=== PATIENT | female | born 1985 | race Two or more races ===

== ENCOUNTER 2022-04-06 23:42 | Emergency (ER) | payer MEDICAID ==
[~2022-04-06] VITALS: Ht 160 cm; Wt 72.8 kg
[2022-04-07] MEDS ORDERED: ACETAMINOPHEN 325 MG TAB PO ONE (04:45)
[2022-04-07] MEDS ORDERED: cefTRIAXone SOD 1,000 MG VL IM ONE (07:00)
[2022-04-07] MEDS ORDERED: CLIN300C8 PO (07:08)
[2022-04-07] MEDS ORDERED: ACET-1080 PO (07:08)
[2022-04-07 07:43] VITALS: BP 127/96
== END 2022-04-07 07:45 | disposition home or self-care (01) ==
LOC: ER 23:50
DX: K04.7 Periapical abscess without sinus (principal)
CPT/HCPCS: 96372; 99283; J0696

== ENCOUNTER 2022-06-12 11:22 | Inpatient (IN) | payer MEDICAID ==
[~2022-06-12] VITALS: Ht 160 cm; Wt 81.6 kg
[~2022-06-12 11:22] MED LIST: ACET-1080 PO; CLIN300C8 PO
[2022-06-12] MEDS ORDERED: DERMOPLAST 60ML BOTTLE TOP PRN (11:45)
[2022-06-12] MEDS ORDERED: WITCH HAZEL-GLYCERIN PAD TOP PRN (11:45)
[2022-06-12] MEDS ORDERED: PHISODERM TOP SOLN 240ML BTL TOP PRN (11:45)
[2022-06-12] MEDS ORDERED: LIDOCAINE 2%HCL (LOCAL ANESTH.) INJ 20ML MDV IJ PRN ×2 (11:45→12:45)
[2022-06-12] MEDS ORDERED: PENICILLIN G POT 5MIL/D5 50ML 50 ML IV ONE ×2 (11:45→12:01)
[2022-06-12] MEDS ORDERED: LACTATED RINGER'S 1,000 ML IV SCH (11:45)
[2022-06-12] MEDS ORDERED: BUTORPHANOL TARTRATE 2 MG/1 ML VIAL IV PRN ×2 (11:45)
[2022-06-12] MEDS ORDERED: PROMETHAZINE HCL 25 MG/ML 1ML IV PRN (11:45)
[2022-06-12 12:06] LABS: Basophils # (auto) 0.1 10 ^3/uL (0-0.2); Basophils % (auto) 0.6 % (0.0-2.0); Eosinophils # (auto) 0.1 10 ^3/uL (0-0.8); Eosinophils % (auto) 0.9 % (0.0-7.0); Hematocrit 36.3 % (36.0-46.0); Hemoglobin 12.3 g/dL (12.2-16.2); Lymphocytes # (auto) 1.2 10 ^3/uL (0.4-5.4); Lymphocytes % (auto) 13.1 % (10.0-50.0); Mean Corpuscular Hemoglobin 32.6 pg (28.0-32.0); Mean Corpuscular Hgb Conc. 33.9 g/dL (32.0-36.0); Mean Corpuscular Volume 96.1 fL (80.0-100.0); Monocytes # (auto) 0.6 10 ^3/uL (0-1.3); Monocytes % (auto) 6.5 % (0.0-12.0); Neutrophils # (auto) 7.3 10 ^3/uL (1.6-8.6); Neutrophils % (auto) 78.9 % (37.0-80.0); Nucleated Red Blood Cells % 0.1 %; Red Blood Cells 3.78 10^6/uL (4.0-5.20); Red Cell Distribution Width 14.5 % (11.8-14.3); White Blood Cell 9.3 10^3/uL (4.4-10.8)
[2022-06-12 12:23] LABS: INR 0.87 (0.9-1.15); Partial Thromboplastin Time 26.2 sec (24.6-33.4)
[2022-06-12] MEDS ORDERED: LACT. RINGERS/OXYTOCIN 20UNITS 1,000 ML IV ONE (12:42)
[2022-06-12 12:43] LABS: Albumin 2.6 g/dL (3.4-5.0); Calcium 8.5 mg/dL (8.5-10.1); Potassium 3.7 mmol/L (3.5-5.1)
[2022-06-12] MEDS ORDERED: METHYLERGONOVINE MALEATE 0.2 MG/ML AMP IM ONE (12:45)
[2022-06-12] MEDS ORDERED: LACT. RINGERS/OXYTOCIN 20UNITS 500 ML IV ONE ×2 (12:45→13:15)
[2022-06-12 12:47] LABS: Bilirubin, Total 0.2 mg/dL (0.2-1.0); Total Protein 5.7 g/dL (6.4-8.2)
[2022-06-12] MEDS ORDERED: miSOPROStol 100 mcg TAB PR PRN (13:00)
[2022-06-12 13:53] LABS: Urine Bacteria NONE SEEN /hpf (None Seen); Urine Blood 2+ /uL (Negative); Urine Mucus FEW (None Seen); Urine Specific Gravity 1.031 (1.001-1.035); Urine WBC 1 /hpf (0 - 5)
[2022-06-12 14:02] LABS: Alcohol, Urine < 3.0 mg/dL (0-10); Amphetamine Screen, Urine NEGATIVE (NEGATIVE); Barbiturate Scree,Urine NEGATIVE (NEGATIVE); Benzodiazephine Screen, Urine NEGATIVE (NEGATIVE); Cannabinoid Screen, Urine NEGATIVE (NEGATIVE); Cocaine Screen, Urine NEGATIVE (NEGATIVE); Opiate Scree,Urine NEGATIVE (NEGATIVE); Phencyclidine Screen, Urine NEGATIVE (NEGATIVE)
[2022-06-12] MEDS ORDERED: IBUPROFEN 600 MG TAB PO PRN (16:00)
[2022-06-12] MEDS ORDERED: ONDANSETRON ODT 4 MG TAB PO PRN (16:00)
[2022-06-12] MEDS: ACETAMINOPHEN 325 MG TAB PO PRN ×2 (17:38→21:59)
[2022-06-12 19:00] VITALS: BP 109/72
[2022-06-12] MEDS: DOCUSATE SOD 100 MG CAP PO SCH (21:58)
[2022-06-12 23:09] VITALS: BP 109/67
[2022-06-13 03:10] VITALS: BP 99/58
[2022-06-13] MEDS: ACETAMINOPHEN 325 MG TAB PO PRN (03:13)
[2022-06-13 06:07] LABS: RPR Non Reactive (Non Reactive)
[2022-06-13 07:00] VITALS: BP 111/54
[2022-06-13] MEDS ORDERED: PREN27TA7 OR (08:55)
[2022-06-13 11:05] VITALS: BP 121/64
[2022-06-13 15:00] VITALS: BP 126/69
[2022-06-13 18:30] VITALS: BP 113/72
[2022-06-13] MEDS: DOCUSATE SOD 100 MG CAP PO SCH (21:33)
[2022-06-13 23:00] VITALS: BP 112/70
[2022-06-14 03:00] VITALS: BP 117/71
[2022-06-14 06:45] VITALS: BP 109/64
[2022-06-14 10:42] VITALS: BP 95/51
== END 2022-06-14 13:46 | disposition home or self-care (01) | DRG 560 ==
LOC: LDRP 11:22 → OBSVTOIN 11:35 → LDRP 11:36
PROVIDERS: ADMIT Obstetrics & Gynecology; ATTEND Obstetrics & Gynecology
PROC: 10E0XZZ Delivery of Products of Conception, External Approach (ICD-10-PCS; principal; 2022-06-12)
PROC: 0KQM0ZZ Repair Perineum Muscle, Open Approach (ICD-10-PCS; 2022-06-12)
DX: O60.14X0 Preterm labor third trimester with preterm delivery third trimester, not applicable or unspecified (principal); Z37.0 Single live birth; O70.1 Second degree perineal laceration during delivery; Z20.822 Contact with and (suspected) exposure to COVID-19; Z3A.36 36 weeks gestation of pregnancy
CPT/HCPCS: 36415; 59025; 76805; 76815; 80053; 80307; 81001; 81002; 85025; 85610; 85730; 86592; 86850; 86900; 86901; 87426; 94760; 96360; 96365; 96366; G0378; J2540; J2590

== ENCOUNTER 2024-02-12 22:23 | Inpatient (IN) | payer MEDICAID ==
[~2024-02-12] VITALS: Ht 165.1 cm; Wt 68.2 kg
[~2024-02-12 22:23] MED LIST changes: +CLIN1CAP70 PO; -CLIN300C8 PO; +PREN27TA7 OR
[2024-02-12 23:05] LABS: Basophils # (auto) 0 10 ^3/uL (0-0.2); Basophils % (auto) 0.2 % (0.0-2.0); Eosinophils # (auto) 0.2 10 ^3/uL (0-0.8); Eosinophils % (auto) 2.1 % (0.0-7.0); Hematocrit 40.8 % (36.0-46.0); Lymphocytes # (auto) 2.3 10 ^3/uL (0.4-5.4); Lymphocytes % (auto) 23.1 % (10.0-50.0); Mean Corpuscular Hemoglobin 32.7 pg (28.0-32.0); Mean Corpuscular Hgb Conc. 34.4 g/dL (32.0-36.0); Mean Corpuscular Volume 95.1 fL (80.0-100.0); Monocytes # (auto) 0.6 10 ^3/uL (0-1.3); Monocytes % (auto) 6.1 % (0.0-12.0); Neutrophils # (auto) 6.9 10 ^3/uL (1.6-8.6); Neutrophils % (auto) 68.5 % (37.0-80.0); Nucleated Red Blood Cells % 0.1 %; Platelet Count (auto) 236 10^3/uL (140-450); Red Blood Cells 4.29 10^6/uL (4.0-5.20); Red Cell Distribution Width 12.9 % (11.8-14.3); White Blood Cell 10.1 10^3/uL (4.4-10.8)
[2024-02-12 23:36] LABS: Alanine Aminotransferase 18 U/L (7-40); Albumin 4.3 g/dL (3.2-4.8); Alkaline Phosphatase 47 U/L (46-116); Anion Gap 7 (5-15); Aspartate Aminotransferase 12 U/L (13-40); Blood Urea Nitrogen 7 mg/dL (9-23); Calcium 9.5 mg/dL (8.7-10.4); Carbon Dioxide 24 mmol/L (20-30); Chloride 106 mmol/L (98-107); Glucose 129 mg/dL (74-106); Potassium 3.7 mmol/L (3.5-5.1); Sodium 137 mmol/L (136-145)
[2024-02-12 23:37] LABS: Bilirubin, Total 0.5 mg/dL (0.2-1.0); Total Protein 6.9 g/dL (5.7-8.2)
[2024-02-13] MEDS: SODIUM CHLORIDE 0.9% 500 ML IV ONE (04:06)
[2024-02-13 05:11] VITALS: PULSE 52; RESP 16; O2SAT 99
[2024-02-13 08:00] VITALS: PULSE 69; RESP 16; O2SAT 97
[2024-02-13] MEDS ORDERED: DOCUSATE SOD 100 MG CAP PO PRN (11:00)
[2024-02-13] MEDS ORDERED: NITROGLYCERIN 0.4 MG SL TAB SL PRN (11:00)
[2024-02-13] MEDS ORDERED: MORPHINE SULFATE INJ 2 MG/ml SYRG IV PRN (11:00)
[2024-02-13] MEDS: SODIUM CHLORIDE 0.9% 1,000 ML IV SCH (11:30)
[2024-02-13] MEDS: ONDANSETRON HCL 4 MG/2 ML VIAL IV PRN (11:42)
[2024-02-13] MEDS: MECLIZINE HCL 25 MG TAB PO ONE (11:50)
[2024-02-13 15:52] VITALS: BP 119/75; PULSE 62; PULSE 80; RESP 17; TEMP 97.3; O2SAT 100
[2024-02-13 17:00] VITALS: BP 119/75; PULSE 62; RESP 17; TEMP 97.3; O2SAT 100
[2024-02-13] MEDS: MECLIZINE HCL 25 MG TAB PO PRN (20:48)
[2024-02-13 21:00] VITALS: BP 115/62; PULSE 60; RESP 16; TEMP 97.7; O2SAT 100
[2024-02-14 05:00] VITALS: BP 97/56; PULSE 56; RESP 18; TEMP 97.8; O2SAT 99
[2024-02-14 07:19] LABS: Basophils # (auto) 0 10 ^3/uL (0-0.2); Basophils % (auto) 0.5 % (0.0-2.0); Eosinophils # (auto) 0.2 10 ^3/uL (0-0.8); Eosinophils % (auto) 2.8 % (0.0-7.0); Hematocrit 38.2 % (36.0-46.0); Hemoglobin 13.1 g/dL (12.2-16.2); Lymphocytes # (auto) 2.1 10 ^3/uL (0.4-5.4); Lymphocytes % (auto) 31.6 % (10.0-50.0); Mean Corpuscular Hemoglobin 32.8 pg (28.0-32.0); Mean Corpuscular Hgb Conc. 34.2 g/dL (32.0-36.0); Mean Corpuscular Volume 95.8 fL (80.0-100.0); Monocytes # (auto) 0.5 10 ^3/uL (0-1.3); Monocytes % (auto) 7.3 % (0.0-12.0); Neutrophils # (auto) 3.9 10 ^3/uL (1.6-8.6); Neutrophils % (auto) 57.8 % (37.0-80.0); Nucleated Red Blood Cells % 0.1 %; Platelet Count (auto) 230 10^3/uL (140-450); Red Blood Cells 3.99 10^6/uL (4.0-5.20); Red Cell Distribution Width 13.4 % (11.8-14.3); White Blood Cell 6.8 10^3/uL (4.4-10.8)
[2024-02-14 07:21] LABS: Alanine Aminotransferase 11 U/L (7-40); Albumin 3.7 g/dL (3.2-4.8); Alkaline Phosphatase 43 U/L (46-116); Anion Gap 5 (5-15); Aspartate Aminotransferase 10 U/L (13-40); Blood Urea Nitrogen 8 mg/dL (9-23); Calcium 8.7 mg/dL (8.7-10.4); Carbon Dioxide 27 mmol/L (20-30); Chloride 112 mmol/L (98-107); Glucose 86 mg/dL (74-106); Potassium 3.7 mmol/L (3.5-5.1); Sodium 144 mmol/L (136-145)
[2024-02-14 07:22] LABS: Bilirubin, Total 0.5 mg/dL (0.2-1.0); Total Protein 5.8 g/dL (5.7-8.2)
[2024-02-14 07:46] LABS: Urine Bacteria MOD /hpf (None Seen); Urine Blood Negative /uL (Negative); Urine Clarity Clear (Clear); Urine Color Light-Yellow (Yellow); Urine Mucus FEW (None Seen); Urine Protein, UAD Negative (Negative); Urine Specific Gravity 1.011 (1.001-1.035); Urine Urobilinogen Normal (Negative); Urine WBC 1 /hpf (0 - 5); Urine pH 5.5 (5.0-9.0)
[2024-02-14 08:50] LABS: Amphetamine Screen, Urine Neg (NEGATIVE); Barbiturate Scree,Urine Neg (NEGATIVE); Benzodiazephine Screen, Urine Neg (NEGATIVE); Cannabinoid Screen, Urine Neg (NEGATIVE); Cocaine Screen, Urine Neg (NEGATIVE); Opiate Scree,Urine Neg (NEGATIVE); Phencyclidine Screen, Urine Neg (NEGATIVE)
[2024-02-14] MEDS: ERGOCALCIFEROL 50,000 UNIT(1.25MG) CAP PO SCH (09:48)
[2024-02-14] MEDS: PANTOPRAZOLE 40 MG TAB PO ONE (09:48)
[2024-02-14 10:00] VITALS: BP_SYST 101; BP_SYST 117; BP_DIAS 64; BP_DIAS 67; BP_DIAS 80; PULSE 67; PULSE 76; PULSE 92
[2024-02-14 13:00] VITALS: BP 99/69; PULSE 54; RESP 17; TEMP 98.5; O2SAT 98
[2024-02-14] MEDS ORDERED: ERGOCALCIFEROL 50,000 UNIT(1.25MG) CAP PO SCH (15:00)
[2024-02-14] MEDS ORDERED: PANT40T PO (15:20)
[2024-02-14] MEDS ORDERED: ERGO1CAP23 PO (15:20)
[2024-02-14] MEDS ORDERED: MECL-90 PO (15:20)
[2024-02-14 15:37] VITALS: BP 99/69; PULSE 54; RESP 17; TEMP 98.5; O2SAT 98
[2024-02-14 16:39] VITALS: BP 119/67; PULSE 65
[2024-02-15] MEDS ORDERED: PANTOPRAZOLE 40 MG TAB PO SCH (06:00)
== END 2024-02-14 16:45 | disposition home or self-care (01) | DRG 111 ==
LOC: ER 22:23 → EDBD 22:23 → OVERFLOW 02-13 10:50 → CENTRAL 02-13 15:56
PROVIDERS: ADMIT Internal Medicine Pulmonary Disease; ATTEND Internal Medicine Pulmonary Disease
DX: H81.10 Benign paroxysmal vertigo, unspecified ear (principal); A08.4 Viral intestinal infection, unspecified; E55.9 Vitamin D deficiency, unspecified; K04.7 Periapical abscess without sinus; Z80.3 Family history of malignant neoplasm of breast
CPT/HCPCS: 36415; 71045; 80053; 80307; 81001; 81025; 82306; 82607; 83036; 83880; 84484; 85025; G0378; J2405

== ENCOUNTER 2024-03-08 11:18 | Inpatient (IN) | payer MEDICAID ==
[~2024-03-08] VITALS: Ht 160 cm; Wt 84.1 kg
[~2024-03-08 11:18] MED LIST changes: -CLIN1CAP70 PO; +ERGO1CAP23 PO; +MECL-90 PO; +PANT40T PO; -PREN27TA7 OR; +ZOFR4T PO
[2024-03-08 12:34] LABS: Urine Bacteria None Seen /hpf (None Seen)
[2024-03-08 12:42] LABS: Urine Blood Negative /uL (Negative); Urine Clarity Clear (Clear); Urine Color Colorless (Yellow); Urine Protein, UAD Negative (Negative); Urine Specific Gravity 1.003 (1.001-1.035); Urine Urobilinogen Normal (Negative); Urine WBC <1 /hpf (0 - 5)
[2024-03-08 13:27] LABS: Basophils # (auto) 0 10 ^3/uL (0-0.2); Basophils % (auto) 0.3 % (0.0-2.0); Eosinophils # (auto) 0.1 10 ^3/uL (0-0.8); Eosinophils % (auto) 1.7 % (0.0-7.0); Hematocrit 42.5 % (36.0-46.0); Hemoglobin 14.3 g/dL (12.2-16.2); Lymphocytes # (auto) 1.4 10 ^3/uL (0.4-5.4); Lymphocytes % (auto) 18.4 % (10.0-50.0); Mean Corpuscular Hemoglobin 31.7 pg (28.0-32.0); Mean Corpuscular Hgb Conc. 33.6 g/dL (32.0-36.0); Mean Corpuscular Volume 94.3 fL (80.0-100.0); Monocytes # (auto) 0.4 10 ^3/uL (0-1.3); Monocytes % (auto) 5.6 % (0.0-12.0); Neutrophils # (auto) 5.8 10 ^3/uL (1.6-8.6); Nucleated Red Blood Cells % 0.1 %; Platelet Count (auto) 253 10^3/uL (140-450); Red Cell Distribution Width 12.9 % (11.8-14.3); White Blood Cell 7.8 10^3/uL (4.4-10.8)
[2024-03-08 13:37] LABS: Alanine Aminotransferase 11 U/L (7-40); Albumin 4.3 g/dL (3.2-4.8); Alkaline Phosphatase 51 U/L (46-116); Anion Gap 6 (5-15); Aspartate Aminotransferase < 8 U/L (13-40); BUN/Creatinine Ratio 12.5 (10.0-20.0); Blood Urea Nitrogen 10 mg/dL (9-23); Calcium 10.3 mg/dL (8.7-10.4); Carbon Dioxide 28 mmol/L (20-31); Chloride 108 mmol/L (98-107); Glucose 90 mg/dL (74-106); Potassium 4.2 mmol/L (3.5-5.1); Sodium 142 mmol/L (136-145)
[2024-03-08 13:38] LABS: Bilirubin, Total 0.5 mg/dL (0.2-1.0); Total Protein 6.8 g/dL (5.7-8.2)
[2024-03-08 18:11] VITALS: PULSE 60; RESP 16; O2SAT 98
[2024-03-08 19:20] VITALS: PULSE 59; RESP 13; O2SAT 97
[2024-03-08] MEDS ORDERED: ONDANSETRON HCL 4 MG/2 ML VIAL IV PRN (21:15)
[2024-03-08] MEDS ORDERED: HYDROcodone-ACET 5/325MG TAB PO PRN (21:15)
[2024-03-08] MEDS ORDERED: DOCUSATE SOD 100 MG CAP PO PRN (21:15)
[2024-03-08] MEDS: SODIUM CHLOR 0.9% PF (SALINE LOCK) 10ML VIAL/SYR IV SCH (22:00)
[2024-03-08] MEDS ORDERED: NITROGLYCERIN 0.4 MG SL TAB SL PRN (23:15)
[2024-03-08] MEDS ORDERED: MORPHINE SULFATE INJ 2 MG/ml SYRG IV PRN (23:15)
[2024-03-09] VITALS (9 sets, daily range): BP systolic 99–119; BP diastolic 49–77; PULSE 52–82; RESP 16–18; TEMP 97.5–98.5; O2SAT 95–100
[2024-03-09] MEDS: MECLIZINE HCL 25 MG TAB PO PRN (01:48)
[2024-03-09 06:48] LABS: Basophils # (auto) 0 10 ^3/uL (0-0.2); Basophils % (auto) 0.3 % (0.0-2.0); Eosinophils # (auto) 0.2 10 ^3/uL (0-0.8); Eosinophils % (auto) 3.4 % (0.0-7.0); Hematocrit 38.6 % (36.0-46.0); Hemoglobin 13.4 g/dL (12.2-16.2); Lymphocytes % (auto) 27.7 % (10.0-50.0); Mean Corpuscular Hemoglobin 32.8 pg (28.0-32.0); Mean Corpuscular Hgb Conc. 34.8 g/dL (32.0-36.0); Mean Corpuscular Volume 94.4 fL (80.0-100.0); Monocytes # (auto) 0.6 10 ^3/uL (0-1.3); Monocytes % (auto) 8.3 % (0.0-12.0); Neutrophils # (auto) 4.4 10 ^3/uL (1.6-8.6); Neutrophils % (auto) 60.3 % (37.0-80.0); Nucleated Red Blood Cells % 0.1 %; Platelet Count (auto) 223 10^3/uL (140-450); Red Blood Cells 4.09 10^6/uL (4.0-5.20); White Blood Cell 7.2 10^3/uL (4.4-10.8)
[2024-03-09 07:08] LABS: Albumin 3.8 g/dL (3.2-4.8); Alkaline Phosphatase 44 U/L (46-116); Anion Gap 6 (5-15); BUN/Creatinine Ratio 12.2 (10.0-20.0); Blood Urea Nitrogen 10 mg/dL (9-23); Calcium 9.2 mg/dL (8.7-10.4); Carbon Dioxide 28 mmol/L (20-31); Chloride 108 mmol/L (98-107); Glucose 88 mg/dL (74-106); Potassium 4.1 mmol/L (3.5-5.1); Sodium 142 mmol/L (136-145)
[2024-03-09 07:09] LABS: Bilirubin, Total 0.7 mg/dL (0.2-1.0); Total Protein 6.1 g/dL (5.7-8.2)
[2024-03-09 07:16] LABS: Alanine Aminotransferase < 9 U/L (7-40); Aspartate Aminotransferase < 8 U/L (13-40)
[2024-03-09 10:02] LABS: Amphetamine Screen, Urine Neg (NEGATIVE); Barbiturate Scree,Urine Neg (NEGATIVE); Benzodiazephine Screen, Urine Neg (NEGATIVE); Cocaine Screen, Urine Neg (NEGATIVE); Opiate Scree,Urine Neg (NEGATIVE)
[2024-03-09 10:03] LABS: Cannabinoid Screen, Urine Neg (NEGATIVE); Phencyclidine Screen, Urine Neg (NEGATIVE)
[2024-03-09] MEDS: PANTOPRAZOLE 40 MG/10 ML VIAL INJ IV SCH (10:11)
[2024-03-09] MEDS: ACETAMINOPHEN 325 MG TAB PO PRN (10:11)
[2024-03-10 05:00] VITALS: BP_SYST 102; BP_SYST 105; BP_SYST 109; BP_DIAS 72; BP_DIAS 82; BP_DIAS 85; PULSE 53; PULSE 55; RESP 19; TEMP 97.7; O2SAT 99
[2024-03-10 08:00] VITALS: RESP 16; O2SAT 96
[2024-03-10 09:00] VITALS: BP 127/43; PULSE 69; RESP 20; TEMP 98; O2SAT 99
[2024-03-10 13:00] VITALS: BP 132/79; PULSE 60; RESP 20; TEMP 98; O2SAT 99
== END 2024-03-10 16:51 | disposition home or self-care (01) | DRG 111 ==
LOC: ER 11:18 → TELE 23:02 → TELE-CENTR 03-09 01:25 → CENTRAL 03-09 12:23
PROVIDERS: ADMIT Internal Medicine Geriatric Medicine; ATTEND Internal Medicine Geriatric Medicine
DX: H81.13 Benign paroxysmal vertigo, bilateral (principal); R00.1 Bradycardia, unspecified; Z79.899 Other long term (current) drug therapy
CPT/HCPCS: 36415; 70450; 70551; 71046; 80053; 80307; 81001; 81025; 82550; 82962; 83880; 84443; 84484; 85025; 93005; 93306; G0378; J2470